=== PATIENT | male | born 1955 | race Caucasian/White ===

== ENCOUNTER 2017-11-15 10:05 | Emergency (ER) | payer BC ==
[~2017-11-15] VITALS: Ht 170.2 cm; Wt 90.7 kg
--- NOTE | 2017-11-15 10:24 | PHYS DOC ---
Adult General Chief Complaint Chief Complaint: MECHANICAL FALL HPI HPI Patient is a 62 year old male presents the ED complaining of right rib pain times one hour ago. Patient was leaving [place] and his feet got caught on the step and he fell down 2 stairs. States he landed on his right side. Discussed the pain as sharp. Rates the pain as 8 out of 10. Denies use of blood thinners, head/neck injury, LOC, vision changes, nausea/vomiting, chest pain, shortness of breath or symptoms prior to fall. Review of Systems Review of Systems Constitutional: Denies fever or chills [] Eyes: Denies change in visual acuity, redness, or eye pain [] HENT: Denies nasal congestion or sore throat [] Respiratory: Denies cough or shortness of breath [] Cardiovascular: No additional information not addressed in HPI [] GI: Denies abdominal pain, nausea, vomiting, bloody stools or diarrhea [] : Denies dysuria or hematuria [] Musculoskeletal: Complains of right rib pain. Denies back pain. Integument: Denies rash or skin lesions [] Neurologic: Denies headache, focal weakness or sensory changes [] All other systems were reviewed and found to be within normal limits, except as documented in this note. Current Medications Current Medications Current Medications Medications (Trade) Dose Ordered Sig/Lily Start Time Stop Time Status Last Admin Dose Admin Acetaminophen/ Hydrocodone Bitart (Lortab 5/325) 1 tab 1X ONCE 11/15/17 11:15 11/15/17 11:16 DC 11/15/17 10:53 1 TAB Ibuprofen (Motrin) 800 mg 1X ONCE 11/15/17 11:15 11/15/17 11:16 DC 11/15/17 10:53 800 MG Allergies Allergies Allergies Coded Allergies Type Severity Reaction Last Updated Verified No Known Medication Allergies Allergy Unknown 11/15/17 Yes codeine Adverse Reaction Intermediate Nausea 11/15/17 Yes Physical Exam Physical Exam Constitutional: Well developed, well nourished, no acute distress, non-toxic appearance. [] HENT: Normocephalic, atraumatic Eyes: PERRLA, EOMI, conjunctiva normal, no discharge. [] Neck: Normal range of motion, no tenderness, supple, no stridor. [] Cardiovascular:Heart rate regular rhythm, no murmur [] Lungs & Thorax: Bilateral breath sounds clear to auscultation. mild right anterior lateral rib tenderness. [] Abdomen: Bowel sounds normal, soft, no tenderness, no masses, no pulsatile masses. [] Skin: Warm, dry, no erythema, no rash. [] Back: No tenderness, no CVA tenderness. [] Extremities: No tenderness, no cyanosis, no clubbing, ROM intact, no edema. [] Neurologic: Alert and oriented X 3, normal motor function, normal sensory function, no focal deficits noted. [] Psychologic: Affect normal, judgement normal, mood normal. [] Current Patient Data Vital Signs Vital Signs Date Time Temp Pulse Resp B/P (MAP) Pulse Ox O2 Delivery O2 Flow Rate FiO2 11/15/17 10:05 98.0 59 11 145/68 (93) 99 Room Air 98.0 EKG EKG [] Radiology/Procedures Radiology/Procedures PROCEDURE: RIBS RIGHT AND PA CHEST Chest PA and right ribs 2 views: Reason for examination: Fell this morning with right-sided chest and flank pain. The heart size is normal. Mediastinum is unremarkable. Lung braden are clear except for calcified granuloma in the left upper lobe. There appears to be thickening of the posterior lateral right 10th rib which probably represents a healed fracture. There is also cortical irregularity anterior laterally at the right third, fourth, fifth and sixth ribs consistent with nondisplaced fractures. No other acute bony abnormalities are seen. Postop changes are seen at the right shoulder. Impression: Nondisplaced fractures of the right third, fourth, fifth and sixth ribs anterolaterally.[] Course & Med Decision Making Course & Med Decision Making Pertinent Labs and Imaging studies reviewed. (See chart for details) []Discussed imaging findings with patient. Patient's pain improved in the ED. States he is much better. Will prescribe analgesics outpatient. Patient given incentive spirometry machine and trained how to use in the ED. Discussed follow- up with PCP outpatient. Provided contact information/education. Discussed reasons to return to the ED. Patient understands and agrees with plan. Dragon Disclaimer Dragon Disclaimer This electronic medical record was generated, in whole or in part, using a voice recognition dictation system. Departure Departure Impression: Primary Impression: Rib fractures Disposition: 01 HOME, SELF-CARE Condition: IMPROVED Referrals: HALLEY CHAVEZ II, MD, MICHAEL M MD Patient Instructions: Rib Fracture Scripts Hydrocodone/Apap 10-325 (NORCO 10-325 TABLET) 1 Each Tablet 1 TAB PO QID for 3 Days, #12 TAB Prov: BONITA SWIFT 11/15/17 BONITA SWIFT Nov 15, 2017 10:24
[2017-11-15] MEDS ORDERED: HYDROcodone/APAP 5/325MG 1 TAB TABLET PO ONE (11:15)
[2017-11-15] MEDS ORDERED: IBUPROFEN 800 MG TABLET. PO ONE (11:15)
--- NOTE | 2017-11-15 11:21 | RAD ---
Chest PA and right ribs 2 views: Reason for examination: Fell this morning with right-sided chest and flank pain. The heart size is normal. Mediastinum is unremarkable. Lung braden are clear except for calcified granuloma in the left upper lobe. There appears to be thickening of the posterior lateral right 10th rib which probably represents a healed fracture. There is also cortical irregularity anterior laterally at the right third, fourth, fifth and sixth ribs consistent with nondisplaced fractures. No other acute bony abnormalities are seen. Postop changes are seen at the right shoulder. Impression: Nondisplaced fractures of the right third, fourth, fifth and sixth ribs anterolaterally. Electronically signed by: Carol Reynoso MD (11/15/2017 11:18 AM) [facility]
[2017-11-15] MEDS ORDERED: HYDR-963 PO (11:52)
[2017-11-15 12:15] VITALS: BP 145/73
== END 2017-11-15 12:30 | disposition home or self-care (01) ==
LOC: ER 10:05
DX: S22.41XA Multiple fractures of ribs, right side, initial encounter for closed fracture (principal); Z88.5 Allergy status to narcotic agent; W10.9XXA Fall (on) (from) unspecified stairs and steps, initial encounter; Y93.89 Activity, other specified; Y92.22 Religious institution as the place of occurrence of the external cause; Y99.8 Other external cause status
CPT/HCPCS: 71101; 99284